=== PATIENT | female | born 1975 | race Caucasian/White ===

== ENCOUNTER 2017-02-17 22:06 | Inpatient (IN) | payer OTHER ==
[~2017-02-17] VITALS: Ht 157.5 cm; Wt 76.8 kg
[2017-02-18 00:40] VITALS: BP 123/68; PULSE 78; RESP 18; TEMP 97.8; O2SAT 98
[2017-02-18] MEDS ORDERED: MAGNESIUM HYDROXIDE SUSP 30 ML CUP PO PRN (01:15)
[2017-02-18] MEDS ORDERED: ALUMINUM/MAGNESIUM/SIMETH 30 ML CUP PO PRN (01:15)
[2017-02-18] MEDS ORDERED: diphenhydrAMINE HCL 50 MG/ML VIAL - HS PRN IM (01:15)
[2017-02-18] MEDS: diphenhydrAMINE HCL 50 MG CAP - HS PRN PO ×2 (01:49→21:18)
[2017-02-18 05:58] VITALS: BP 103/56; PULSE 69; RESP 16; TEMP 98.2; O2SAT 97
[2017-02-18] MEDS ORDERED: NICOTINE 21 MG/24 HR PATCH T-DERMAL SCH (09:00)
--- NOTE | 2017-02-18 13:04 | HHI.HP ---
Provisional Diagnosis Admission Date Feb 18, 2017 at 00:50 [place]. Adjustment disorder Certification of Person's Competence To Provide Express and Informed Consent I have personally examined Asiya Avila , a person being served at [facility] on, Feb 18, 2017 12:52. Express and informed consent means consent voluntarily given in writing, by a competent person, after sufficient explanation and disclosure of the subject matter involved to enable the person to make a knowing and willful decision without any element of force, fraud, deceit, duress, or other form of constraint or coercion. This person is 18 years of age or older, is not now known to be incompetent to consent to treatment with a guardian advocate, and does not have a health care surrogate or proxy currently making medical treatment decisions. I have found this person to be one of the following: [x] Competent to provide express and informed consent, as defined above, for voluntary admission to this facility and is competent to provide express and informed consent for treatment. He/she has the consistent capacity to make well reasoned, willful, and knowing decisions concerning his or her medical or mental health treatment. The person fully and consistently understands the purpose of the admission for examination/placement and is fully capable of personally exercising all rights assured [place] Incompetent to provide express and informed consent to voluntary admission, and this is incompetent to provide express and informed consent to treatment. The person must be transferred to involuntary status and a petition for a guardian advocate filed with the Circuit Court. [] Refusing to provide express and informed consent to voluntary admission but is competent to provide express and informed consent for treatment. The person must be discharged or transferred to involuntary status. Form shall be completed within 24 hours of a person's arrival at the receiving facility and filed in the clinical record of each person: 1. Admitted on a voluntary basis 2. Permitted to provide express and informed consent to his/her own treatment 3. Allowed to transfer from involuntary to voluntary status 4. Prior to permitting a person to consent to his or her own treatment after having been previously found incompetent to consent to treatment. History of Present Illness Capacity: Has Capacity HPI This is a 41-year-old female who overdosed on multiple medications including Prozac, Tylenol and ibuprofen. She admits this was a suicide attempt and actually went to the [facility] near her home to escape notice. However, after she got sick and threw up, she spoke to her mother on the phone and was brought to the emergency room for further treatment. At this time, the patient states that she is having great stress living with her mother. She is feeling greatly criticized by her mother because she wants to change jobs. 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 Her mother criticized her for leaving her job before obtaining another one. Patient describes symptoms of depressed mood, diminished self-esteem, social withdrawal, feelings of helplessness and hopelessness, decreased energy, etc. However the cause of these symptoms is based on her situation and her belief that she cannot get a job as a nurse due to her past legal issues and addiction. She has been feeling this way for several years as her arrest and incarceration and rehabilitation have been going on for several years. Obviously the severity of her symptoms have been worse recently as she is dependent on her mother and lives in her mother's condominium. Review of Systems ROS Limitations: Clinical Condition Except as stated in HPI: all other systems reviewed are Neg Past Psych History Psychological trauma history Denies Violence risk - others (6 mos) Minimal Violence risk - self (6 mos) Moderate Substance Abuse History Drugs/Alcohol past 12 months Patient has reportedly been clean and sober for over a year. Prior to that she was addicted to pain pills in the past. Past Family Social History Current Medications Medications (Trade) Dose Ordered Sig/Leon Route Start Time Stop Time Status Last Admin (Atarax) 50 mg Q6H PRN PO 02/18/17 01:15 (Benadryl) 50 mg HS PRN PO 02/18/17 01:15 02/18/17 01:49 (Benadryl Inj) 50 mg HS PRN IM 02/18/17 01:15 (Milk Of Magnesia Liq) 30 ml DAILY PRN PO 02/18/17 01:15 (Mag-Al Plus Susp Liq) 30 ml Q6H PRN PO 02/18/17 01:15 Family History Family history is positive for mood disorders. Social History As stated above, the patient has worked at this institution as a nurse. She has not been employed as a nurse for several years due to her drug addiction history and her arrest with felony charges. She is not and has no children. She is currently unemployed. She is dependent on her mother for her housing, etc. Patient's Strengths (min. 2) Verbal and well educated. Physical Exam GENERAL: SKIN: Warm and dry. HEAD: Normocephalic. EYES: No scleral icterus. No injection or drainage. NECK: Supple, trachea midline. No JVD or lymphadenopathy. CARDIOVASCULAR: Regular rate and rhythm without murmurs, gallops, or rubs. RESPIRATORY: Breath sounds equal bilaterally. No accessory muscle use. GASTROINTESTINAL: Abdomen soft, non-tender, nondistended. MUSCULOSKELETAL: No cyanosis, or edema. BACK: Nontender without obvious deformity. No CVA tenderness. Vital Signs Vital Signs Date Time Temp Pulse Resp B/P Pulse Ox O2 Delivery O2 Flow Rate FiO2 02/18/17 05:58 98.2 69 16 103/56 97 Mental Status Examination Speech: Unremarkable Orientation: x3 Memory: Unremarkable Thought Process: Organized, Goal Directed Thought Content: Unremarkable Hallucination Type: None Attention and Concentration: Good Suicidal Ideation: Yes Previous Suicide Attempts: Yes Suicidal Plan Remarks Patient currently regrets her previous suicide attempt. Homicidal Ideation: No Previous Homicide Attempts: No Insight: Fair Judgment: Unrealistic Affect: Anxious, Sad Affect if Inappropriate: Blunt Mood: Sad Motor Activity: Normal gait Assessment & Plan Problem List: (1) Adjustment disorder with mixed disturbance of emotions and conduct ICD Code: F43.25 Assessment & Plan Estimated LOS: 4 days this physician plans to start the patient on Wellbutrin and eventually start her back on Prozac. The patient needs to be engaged in individual and group therapies. It is also hoped and planned that the counselor meets with the patient and the patient's mother regarding the relationship. This physician also plans to test the patient's cardiac status due to her overdose. It is anticipated she'll be in the hospital for 3-4 days. Sina Culp MD Feb 18, 2017 13:04
[2017-02-18] MEDS ORDERED: REMOVE OLD NICOTINE PATCH T-DERMAL SCH (21:00)
[2017-02-18] MEDS ORDERED: buPROPion HCL 150 MG SUSTAINED RELEASE TAB PO SCH (21:00)
[2017-02-18] MEDS: IBUPROFEN 400 MG TAB PO PRN (21:19)
[2017-02-19 05:00] VITALS: BP 112/56; PULSE 79; RESP 18; TEMP 98.2; O2SAT 96
[2017-02-19] MEDS ORDERED: FLUoxetine HCL 10 MG CAP PO SCH (09:00)
[2017-02-19] MEDS: IBUPROFEN 400 MG TAB PO PRN (11:09)
--- NOTE | 2017-02-19 12:34 | HHI.PYPN ---
Subjective Remarks Patient continues to have significant symptoms of depressed mood, anhedonia, tearfulness, suicidal ideation, low self-esteem, social withdrawal, etc. This physician started her Prozac yesterday and she appears to be tolerating it adequately. We are also scheduling a meeting with the patient and her mother for Wednesday to discuss discharge. Finally, in treatment team we discussed referring the patient to IPN. Review of Systems ROS Limitations: Clinical Condition Objective Alert: Yes [place]: Person, Place, Date, Situation Mood: Anxious, Depressed Affect: Euthymic, Restricted Memory Intact: Immediate, Recent, Remote Hallucinations: Other Delusions: No Delusion Type: Other Suicidal: Ideation (unable to contract for safety.) Homicidal: Ideation (does not want to hurt anyone else.) Insight/Judgment Impaired Vitals/IOs Vital Signs Date Time Temp Pulse Resp B/P Pulse Ox O2 Delivery O2 Flow Rate FiO2 02/19/17 05:00 98.2 79 18 112/56 96 Assessment & Plan Problem List: (1) Adjustment disorder with mixed disturbance of emotions and conduct ICD Code: F43.25 Assessment & Plan Estimated LOS: 3 days want to give the Prozac chance to work and possibly increase the dose. Engage the patient in individual and group therapies. Establish connection for nurse practitioners who are in need of monitoring and advocacy for drug addiction. Justification for Cont. Inpt. Depressed and suicidal with recent overdose. Sina Culp MD Feb 19, 2017 12:34
--- NOTE | 2017-02-19 14:35 | PD.CONS ---
HPI Service [facility] Consult Requested By Psychiatry team Reason for Consult Assist with medical management, overdose of multiple substance Primary Care Physician Unknown Diagnoses: History of Present Illness Patient is a 41 year old white female with primary medical history of chronic back pain, depression, anxiety, colitis, C. difficile history who came in as a transfer from [facility] [place] after ingesting multiple medications for suicidal attempt. Patient states she ingested 29 of Prozac, 20 of Excedrin, 20+ ibuprofen tablets, and 8 tablets of Aleve. According to the records from [facility], her Tylenol level was trending down, less level noted at 5. As per patient she wasn't given any medications except for Zofran for her nausea and IV fluids. Patient states she is doing better except for minor headache she feels fine. Denies SI/HI. Denies pain and discomfort. Denies SOB/ dyspnea. Denies chest pain, palpitations, headaches, dizziness. Denies fevers, chills, n/v/d. Review of Systems Except as stated in HPI: all other systems reviewed are Neg Past Family Social History Allergies: Coded Allergies: No Known Allergies (Unverified , 02/18/17) Past Medical History Chronic Back Pain C diff colitis Substance abuse Past Surgical History None Reported Medications None Active Ordered Medications Current Medications Medications (Trade) Dose Ordered Sig/Leon Route Start Time Stop Time Status Last Admin (Atarax) 50 mg Q6H PRN PO 02/18/17 01:15 (Benadryl) 50 mg HS PRN PO 02/18/17 01:15 02/18/17 21:18 (Benadryl Inj) 50 mg HS PRN IM 02/18/17 01:15 (Milk Of Magnesia Liq) 30 ml DAILY PRN PO 02/18/17 01:15 (Mag-Al Plus Susp Liq) 30 ml Q6H PRN PO 02/18/17 01:15 (Motrin) 400 mg Q6H PRN PO 02/18/17 21:00 02/19/17 11:09 (Wellbutrin Sr) 150 mg DAILY PO 02/20/17 09:00 (PROzac) 10 mg HS PO 02/19/17 21:00 Family History No significant family medical history, except for mood disorders Social History Patient is a previous nurse, 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 Patient also has been arrested prior but went for rehabilitation and states she has been clean of substance abuse for 2.5 years. Denies alcohol use Denies tobacco use Off substance for 2.5 years. Physical Exam Vital Signs Vital Signs Date Time Temp Pulse Resp B/P Pulse Ox O2 Delivery O2 Flow Rate FiO2 02/19/17 05:00 98.2 79 18 112/56 96 Physical Exam GENERAL: This is a well-nourished, well-developed patient, in no apparent distress. SKIN: Abrasion bilateral lower extremity, no ecchymoses or lesions. Warm and dry. HEAD: Atraumatic. Normocephalic. No temporal or scalp tenderness. EYES: Pupils equal round and reactive. Extraocular motions intact. No scleral icterus. No injection or drainage. ENT: Nose without bleeding. Throat without erythema. Uvula midline. Airway patent. NECK: Trachea midline. No JVD or lymphadenopathy. Supple. CARDIOVASCULAR: Regular rate and rhythm without murmurs, gallops, or rubs. RESPIRATORY: Clear to auscultation. Breath sounds equal bilaterally. No wheezes , rales, or rhonchi. GASTROINTESTINAL: Abdomen soft, non-tender, nondistended. Bowel sounds active 4. MUSCULOSKELETAL: Extremities without clubbing, cyanosis, or edema. No joint tenderness, effusion, or edema noted. NEUROLOGICAL: Awake and alert. No focal neuro deficit. Motor and sensory grossly within normal limits. Five out of 5 muscle strength in all muscle groups. Normal speech. Assessment and Plan Problem List: (1) Adjustment disorder with mixed disturbance of emotions and conduct ICD Code: F43.25 Status: Acute (2) SSRI overdose ICD Code: T43.221A Status: Acute (3) Tylenol overdose ICD Code: T39.1X1A Status: Acute (4) Salicylate overdose ICD Code: T39.091A Status: Acute Assessment and Plan Patient is a 41 year old white female with primary medical history of chronic back pain, depression, anxiety, colitis, C. difficile history who came in as a transfer from [facility] [place] after ingesting multiple medications for suicidal attempt. Patient states she ingested 29 of Prozac, 20 of Excedrin, 20+ ibuprofen tablets, and 8 tablets of Aleve. According to the records from [facility], her Tylenol level was trending down, less level noted at 5. As per patient she wasn't given any medications except for Zofran for her nausea and IV fluids. She is now admitted to inpatient psychiatry unit for further evaluation. Consulted for medical management. Depression, anxiety, suicidal ideation - managed by psychiatry team Tylenol overdose SSRI overdose Salicylate overdose - Recheck labs in the morning CBC, CMP - Baseline case monitor QT prolongation secondary to SSRI overdose - Check Tylenol level, check salicylate level - Monitor for bleeding Substance abuse - Patient has been off prescription illicit drugs for 2-1/2 years. DVT prop ambulatory Written by Darlyn Arauz, acting as scribe for Dr. Sánchez on 02/19/17 at 16: 00. This note was transcribed by scribe Darlyn Arauz. I, Dr. Iraida Sánchez personally performed the history, physical exam, and medical decision making; and confirmed the accuracy of the information in the transcribed note. Authenticated by Dr. Iraida Sánchez on 02/19/17 at 16:00. Code Status Full code Discussed Condition With Patient, nursing Darlyn Mejia Feb 19, 2017 14:35 Iraida Sánchez MD Feb 20, 2017 14:29
[2017-02-19 19:13] VITALS: BP 123/77; PULSE 77; RESP 18; TEMP 98.5; O2SAT 97
[2017-02-19] MEDS: FLUoxetine HCL 10 MG CAP PO SCH (21:46)
[2017-02-20 05:41] VITALS: BP 119/62; PULSE 76; RESP 17; TEMP 98; O2SAT 98
[2017-02-20 08:59] LABS: BASOPHIL % 0.4 % (0.0-2.0); EOSINOPHIL # 0.1 TH/MM3 (0-0.4); HEMATOCRIT 38.6 % (35.0-46.0); HEMO FLAGS DIFF FINAL; LYMPH % 27.4 % (9.0-44.0); LYMPHOCYTE # 1.3 TH/MM3 (1.0-4.8); MEAN CORPUSCULAR HEMOGLOBIN 28.4 PG (27.0-34.0); MEAN CORPUSCULAR HGB CONC 32.6 % (32.0-36.0); MONO % 7.7 % (0.0-8.0); NEUT % 61.5 % (16.0-70.0); PLATELET COUNT 265 TH/MM3 (150-450); RED BLOOD COUNT 4.44 MIL/MM3 (4.00-5.30); RED CELL DISTRIBUTION WIDTH 13.3 % (11.6-17.2); WHITE BLOOD COUNT 4.8 TH/MM3 (4.0-11.0)
[2017-02-20] MEDS: buPROPion HCL 150 MG SUSTAINED RELEASE TAB PO SCH (09:27)
[2017-02-20 09:35] LABS: ACETAMINOPHEN LESS THAN 2.0 MCG/ML (10.0-30.0); ALKALINE PHOSPHATASE 51 U/L (45-117); ALT (GPT) 25 U/L (10-53); ANION GAP 6 MEQ/L (5-15); AST (GOT) 15 U/L (15-37); BLOOD UREA NITROGEN 12 MG/DL (7-18); CHLORIDE 104 MEQ/L (98-107); GLOMERULAR FILTRATION RATE 78 ML/MIN (>89); POTASSIUM 3.6 MEQ/L (3.5-5.1); SODIUM (NA) 139 MEQ/L (136-145); TOTAL BILIRUBIN ADULT 0.2 MG/DL (0.2-1.0)
[2017-02-20] MEDS: IBUPROFEN 400 MG TAB PO PRN (11:09)
--- NOTE | 2017-02-20 14:19 | EKG ---
Date Performed: 02/19/2017 Time Performed: 16:23:29 PTAGE: 41 years EKG: Within normal limits NORMAL ECG NO PREVIOUS TRACING DOCTOR: Sina Macario Interpretating Date/Time 02/20/2017 14:18:44
--- NOTE | 2017-02-20 14:53 | HHI.PR ---
Subjective Remarks Follow-up visit multiple medication ingestion, overdose. Patient seen today. Reports she is doing well. Discuss results of all her labs and diagnostics. Denies pain and discomfort. Denies SOB/ dyspnea. Denies chest pain, palpitations, headaches, dizziness. Denies fevers, chills, n/v/d. Objective Vitals Vital Signs Date Time Temp Pulse Resp B/P Pulse Ox O2 Delivery O2 Flow Rate FiO2 02/20/17 05:41 98.0 76 17 119/62 98 02/19/17 19:13 98.5 77 18 123/77 97 Result Diagram: 02/20/17 0835 02/20/17 0835 Objective Remarks GENERAL: This is a well-nourished, well-developed patient, in no apparent distress. HEENT: Normocephalic. Pupils equal round and reactive. Nose without bleeding. Airway patent. NECK: Trachea midline. No JVD. Supple. CARDIOVASCULAR: Regular rate and rhythm without murmurs, gallops, or rubs. RESPIRATORY: Clear to auscultation. Breath sounds equal bilaterally. No wheezes , rales, or rhonchi. GASTROINTESTINAL: Abdomen soft, non-tender, nondistended. Bowel Sounds normoactive x4. MUSCULOSKELETAL: Extremities without clubbing, cyanosis, or edema. NEUROLOGICAL: Awake and alert. Oriented x 3. No focal neuro deficit. ADAMES. Normal speech. A/P Problem List: (1) Adjustment disorder with mixed disturbance of emotions and conduct ICD Code: F43.25 Status: Acute (2) SSRI overdose ICD Code: T43.221A Status: Acute (3) Tylenol overdose ICD Code: T39.1X1A Status: Acute (4) Salicylate overdose ICD Code: T39.091A Status: Acute Assessment and Plan Patient is a 41 year old white female with primary medical history of chronic back pain, depression, anxiety, colitis, C. difficile history who came in as a transfer from [facility] [place] after ingesting multiple medications for suicidal attempt. Patient states she ingested 29 of Prozac, 20 of Excedrin, 20+ ibuprofen tablets, and 8 tablets of Aleve. According to the records from [facility], her Tylenol level was trending down, less level noted at 5. As per patient she wasn't given any medications except for Zofran for her nausea and IV fluids. She is now admitted to inpatient psychiatry unit for further evaluation. Consulted for medical management. Depression, anxiety, suicidal ideation - managed by psychiatry team Tylenol overdose SSRI overdose Salicylate overdose - CBC, CMP within normal - EKG within normal limits, without QT prolongation - Tylenol level less than 2.0, salicylate level less than 1.7 - Discussed with patient labs are within normal. Substance abuse - Patient has been off prescription illicit drugs for 2-1/2 years. DVT prop ambulatory Discussed with patient, nursing Stable from Hospitalist standpoint. We will sign off. Reconsult as needed. Written by Darlyn Arauz, acting as scribe for Dr. Sánchez on 02/20/17 at 14: 47. This note was transcribed by scribe Darlyn Arauz. I, Dr. Iraida Sánchez personally performed the history, physical exam, and medical decision making; and confirmed the accuracy of the information in the transcribed note. Authenticated by Dr. Iraida Sánchez on 02/20/17 at 14:47. Darlyn Mejia Feb 20, 2017 14:53 Iraida Sánchez MD Feb 21, 2017 12:29
[2017-02-20 18:11] VITALS: BP 123/81; PULSE 70; RESP 17; TEMP 98.2; O2SAT 97
--- NOTE | 2017-02-20 20:26 | HHI.PYPN ---
Subjective Remarks Pt seen and discussed with staff. SHe reports that depression is improving and sadness has lessened. She reports that she is tolerating medication without side effects. She denies SI/HI. Objective Alert: Yes [place]: Person, Place, Date, Situation Mood: Depressed Affect: Restricted Memory Intact: Immediate, Recent, Remote Hallucinations: Other (none) Delusions: No Delusion Type: Other Suicidal: Ideation (denies) Homicidal: Ideation (denies) Insight/Judgment fair Labs Test 02/20/17 08:35 White Blood Count 4.8 TH/MM3 Red Blood Count 4.44 MIL/MM3 Hemoglobin 12.6 GM/DL Hematocrit 38.6 % Mean Corpuscular Volume 87.0 FL Mean Corpuscular Hemoglobin 28.4 PG Mean Corpuscular Hemoglobin 32.6 % Concent Red Cell Distribution Width 13.3 % Platelet Count 265 TH/MM3 Mean Platelet Volume 8.1 FL Neutrophils (%) (Auto) 61.5 % Lymphocytes (%) (Auto) 27.4 % Monocytes (%) (Auto) 7.7 % Eosinophils (%) (Auto) 3.0 % Basophils (%) (Auto) 0.4 % Neutrophils # (Auto) 3.0 TH/MM3 Lymphocytes # (Auto) 1.3 TH/MM3 Monocytes # (Auto) 0.4 TH/MM3 Eosinophils # (Auto) 0.1 TH/MM3 Basophils # (Auto) 0.0 TH/MM3 CBC Comment DIFF FINAL Differential Comment Sodium Level 139 MEQ/L Potassium Level 3.6 MEQ/L Chloride Level 104 MEQ/L Carbon Dioxide Level 29.0 MEQ/L Anion Gap 6 MEQ/L Blood Urea Nitrogen 12 MG/DL Creatinine 0.82 MG/DL Estimat Glomerular Filtration 78 ML/MIN Rate Random Glucose 95 MG/DL Calcium Level 8.7 MG/DL Total Bilirubin 0.2 MG/DL Aspartate Amino Transf 15 U/L (AST/SGOT) Alanine Aminotransferase 25 U/L (ALT/SGPT) Alkaline Phosphatase 51 U/L Total Protein 7.0 GM/DL Albumin 3.7 GM/DL Salicylates Level LESS THAN 1.7 MG/DL Acetaminophen Level LESS THAN 2.0 MCG/ML Vitals/IOs Vital Signs Date Time Temp Pulse Resp B/P Pulse Ox O2 Delivery O2 Flow Rate FiO2 02/20/17 18:11 98.2 70 17 123/81 97 Assessment & Plan Problem List: (1) Adjustment disorder with mixed disturbance of emotions and conduct ICD Code: F43.25 Assessment & Plan Continue current tx plan. Estimated LOS: days Justification for Cont. Inpt. observation for Krystle Turpin MD Feb 20, 2017 20:26
[2017-02-20] MEDS: FLUoxetine HCL 10 MG CAP PO SCH (21:42)
[2017-02-20] MEDS: hydrOXYzine HCL 50 MG TAB PO PRN (21:42)
[2017-02-21 05:31] VITALS: BP 121/66; PULSE 63; RESP 16; TEMP 99.1; O2SAT 97
[2017-02-21] MEDS: buPROPion HCL 150 MG SUSTAINED RELEASE TAB PO SCH (09:02)
--- NOTE | 2017-02-21 15:58 | HHI.PYPN ---
Subjective Remarks Pt seen and discussed with staff. She reports that mood is better and is "ok". She process communication difficulties with mother, poor coping skills and impulsive behaviors that contributed to suicide attempt. No medication side effects. She reports positive response to fluoxetine in the past. She denies SI/ HI. She c/o of yeast infection symptoms (vaginal itching with thick white discharge) x 3 days. She has used diflucan in the past with good effect. Objective Alert: Yes [place]: Person, Place, Date, Situation Mood: Depressed Affect: Other (more reactive and full today) Memory Intact: Immediate, Recent, Remote Hallucinations: Other (none) Delusions: No Delusion Type: Other (none) Suicidal: Ideation (denies) Homicidal: Ideation (denies) Insight/Judgment fair Vitals/IOs Vital Signs Date Time Temp Pulse Resp B/P Pulse Ox O2 Delivery O2 Flow Rate FiO2 02/21/17 05:31 99.1 63 16 121/66 97 Assessment & Plan Problem List: (1) Adjustment disorder with mixed disturbance of emotions and conduct ICD Code: F43.25 Assessment & Plan Continue current tx plan. Diflucan 150mg X1 dose for yeast infection symptoms. Estimated LOS: days Justification for Cont. Inpt. risk of decompensation Krystle Boogie MD Feb 21, 2017 15:57
[2017-02-21] MEDS ORDERED: FLUCONAZOLE 100 MG TAB PO ONE (16:00)
[2017-02-21 18:00] VITALS: BP 110/76; PULSE 90; RESP 17; O2SAT 96
[2017-02-21] MEDS: IBUPROFEN 400 MG TAB PO PRN (21:45)
[2017-02-21] MEDS: hydrOXYzine HCL 50 MG TAB PO PRN (21:45)
[2017-02-21] MEDS: FLUoxetine HCL 10 MG CAP PO SCH (21:45)
[2017-02-22 07:28] VITALS: BP 106/71; PULSE 70; RESP 18; TEMP 97.8; O2SAT 97
[2017-02-22] MEDS: buPROPion HCL 150 MG SUSTAINED RELEASE TAB PO SCH (09:01)
--- NOTE | 2017-02-22 12:05 | HHI.DS ---
Psychiatry Discharge Summary Inpatient Psychiatric care?: Yes Advance Directive: No Reason Not Provided: Due to Patient Condition Mental Health AdvanceDirective: No Health Care Proxy: No Admission Admission Date Feb 18, 2017 at 00:50 Admission Diagnosis: (1) Adjustment disorder with mixed disturbance of emotions and conduct ICD Code: F43.25 Brief History This is a 41-year-old female who overdosed on multiple medications including Prozac, Tylenol and ibuprofen. She admits this was a suicide attempt [place]. However, after she got sick and threw up, she spoke to her mother on the phone and was brought to the emergency room for further treatment. At this time, the patient states that she is having great stress living with her mother. She is feeling greatly criticized by her mother because she wants to change jobs. 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 Her mother criticized her for leaving her job before obtaining another one. Patient describes symptoms of depressed mood, diminished self-esteem, social withdrawal, feelings of helplessness and hopelessness, decreased energy, etc. However the cause of these symptoms is based on her situation and her belief that she cannot get a job as a nurse due to her past legal issues and addiction. She has been feeling this way for several years as her arrest and incarceration and rehabilitation have been going on for several years. Obviously the severity of her symptoms have been worse recently as she is dependent on her mother and lives in her mother's condominium. Tobacco Use In Past 30 Days: No Tobacco Past 30 Days Alcohol Use: Monthly or Less Hospital Course Patient was started on both Prozac and Wellbutrin to treat her symptoms of depression and anxiety. She participated in individual and group counseling. She met with this physician on multiple occasions and was encouraged and referred to join the impaired nurse's program. No procedures were performed and at the time of discharge she was provided with her medications and follow up appointments. Results Blood Pressure 106 / 71 Vital Signs Date Time Temp Pulse Resp B/P Pulse Ox O2 Delivery O2 Flow Rate FiO2 02/22/17 07:28 97.8 70 18 106/71 97 Laboratory Tests Test 02/20/17 08:35 Estimat Glomerular Filtration 78 ML/MIN (>89) Rate Salicylates Level LESS THAN 1.7 MG/DL (2.8-20.0) Acetaminophen Level LESS THAN 2.0 MCG/ML (10.0-30.0) Summary of Procedures None Pending results at discharge: No Medications # of Antipsychotic meds at D/C: 0 Approp Antipsych med options 1 - Minimum of three failed multiple trials of monotherapy. 2 - Documented plan to taper to monotherapy due to previous use of multiple meds OR cross-taper in progress at D/C. 3 - Documentation of augmentation of Clozapine. 4 - Justification other than those listed in allowable values 1-3, document here : Discharge Discharge Date: Feb 22, 2017 Discharge Diagnosis: (1) Adjustment disorder with mixed disturbance of emotions and conduct Diagnosis: Principal ICD Code: F43.25 Mental Status Exam at Disch At the time of discharge the patient was cognitively completely intact. She had no suicidal or homicidal ideation, plan or intention. She was tolerating her medications quite well. She was looking forward to her future endeavors. This physician met with her and her mother for a brief time to go over the discharge plan. Pt Condition on Discharge: Stable Discharge Disposition: Discharge Home Discharge Instructions Diet Instructions: As Tolerated, No Restrictions Activities you can perform: Regular-No Restrictions Discharge Time > 30 minutes Discharge/Advance Care Plan Health Problems: (1) Adjustment disorder with mixed disturbance of emotions and conduct Goals to promote your health * To prevent worsening of your condition and complications * To maintain your health at the optimal level Directions to meet your goals Take your medications as prescribed Follow your dietary instruction Follow activity as directed Keep your appointments as scheduled Take your immunizations and boosters as scheduled If your symptoms worsen call your PCP, if no PCP go to Urgent Care Center or Emergency Room For 31/05 questions related to your inpatient stay or results of tests pending at discharge, please contact Dr. Sina Culp at Smoking is Dangerous to Your Health. Avoid second hand smoking Sina Culp MD Feb 22, 2017 12:05
[2017-02-22] MEDS ORDERED: FLUO-1 PO (12:07)
[2017-02-22] MEDS ORDERED: BUPR150CR PO (12:07)
== END 2017-02-22 15:15 | disposition home or self-care (01) | DRG 882 ==
LOC: H260 02-18 00:50
PROVIDERS: ADMIT Psychiatry & Neurology Psychiatry; ATTEND Psychiatry & Neurology Psychiatry
DX: F43.25 Adjustment disorder with mixed disturbance of emotions and conduct (principal); B37.3 Candidiasis of vulva and vagina
CPT/HCPCS: 80053; 80307; 85025; 93005; Q0163